=== PATIENT | female | born 1970 | race Caucasian/White ===

== ENCOUNTER 2016-07-22 06:27 | Day surgery (SDC) | payer BC, OTHER ==
[~2016-07-22] VITALS: Ht 160 cm; Wt 77.5 kg
[~2016-07-22 06:27] MED LIST: ADVIL200 MG PO; FIORICET 50-301 EACH PO; LO-DOSE ASPIRIN81 M2 PO; MAXALT5 MG PO; PERCOCET 5/31 TABLET PO; SYNTHROID88 MCG PO; TRAMADOL HCL50 MG PO; TUMS500 MG PO; TYLENOL EXTRA500 MG PO
[2016-07-22 07:21] VITALS: BP 107/65
[2016-07-22 10:23] VITALS: BP 99/64
[2016-07-22 10:52] VITALS: BP 116/60
== END 2016-07-22 10:57 | disposition home or self-care (01) ==
LOC: SDC 06:27
DX: N92.1 Excessive and frequent menstruation with irregular cycle (principal); N88.2 Stricture and stenosis of cervix uteri; N94.6 Dysmenorrhea, unspecified; Z98.51 Tubal ligation status; Z85.850 Personal history of malignant neoplasm of thyroid; Z86.32 Personal history of gestational diabetes; E72.12 Methylenetetrahydrofolate reductase deficiency; Z79.82 Long term (current) use of aspirin; Z86.72 Personal history of thrombophlebitis; E89.0 Postprocedural hypothyroidism; Z88.1 Allergy status to other antibiotic agents; Z88.8 Allergy status to other drugs, medicaments and biological substances; Z83.49 Family history of other endocrine, nutritional and metabolic diseases; Z83.3 Family history of diabetes mellitus; Z80.1 Family history of malignant neoplasm of trachea, bronchus and lung; Z82.49 Family history of ischemic heart disease and other diseases of the circulatory system; Z80.51 Family history of malignant neoplasm of kidney; Z82.5 Family history of asthma and other chronic lower respiratory diseases; Z82.3 Family history of stroke
CPT/HCPCS: 88305; J0690; J1100; J1170; J1885; J2250; J2405; J2765; J3010